=== PATIENT | male | born 1990 | race Caucasian/White ===

== ENCOUNTER 2016-11-27 21:19 | Emergency (ER) | payer OTHER ==
[~2016-11-27] VITALS: Ht 177.8 cm; Wt 138.4 kg
[2016-11-27 21:27] VITALS: TEMP 37.8; Ht 177.8 cm; Wt 138.4 kg
[2016-11-27] MEDS ORDERED: ESCI1TAB10 PO (22:30)
[2016-11-27] MEDS ORDERED: SODIUM CHLORIDE 0.9% 500ML 500 ML IV STA ×2 (22:44→23:30)
[2016-11-27] MEDS ORDERED: KETOROLAC TROMETHAMINE 30 MG/ML VIAL IV STA (22:44)
[2016-11-27] MEDS ORDERED: ACETAMINOPHEN 500 MG TAB PO STA (22:44)
[2016-11-27] MEDS ORDERED: ALBUTEROL HFA 8 GM INHALER INH ONE (22:45)
--- NOTE | 2016-11-27 22:46 | DIAGNOSTIC IMAGING REPORT ---
CHEST ONE VIEW PORTABLE CLINICAL HISTORY: Atypical chest pain, cough, chills, nausea, body aches COMPARISON STUDY: No previous studies for comparison. FINDINGS: The cardiac and mediastinal contours are normal. There is no evidence of focal pulmonary consolidation. There is no evidence of failure. No pleural effusions are visualized.[ IMPRESSION: No active disease in the chest. Electronically signed by: Dakota Lewis M.D. 11/27/2016 10:45 PM Dictated Date/Time: 11/27/2016 10:44 PM
[2016-11-27] MEDS ORDERED: ESCITALOPRAM OXALATE 20 MG TAB PO STA (22:48)
[2016-11-27 22:49] LABS: HEMATOCRIT 42.5 % (42-52); MEAN CELL VOLUME 79.7 fL (80-100); MEAN CORPUSCULAR HEMOGLOBIN 28.7 pg (25-34); MEAN PLATELET VOLUME 9.6 fL (7.4-10.4); PLATELET COUNT 266 K/uL (130-400); RED BLOOD COUNT 5.33 M/uL (4.7-6.1); WHITE BLOOD COUNT 24.28 K/uL (4.8-10.8)
[2016-11-27 22:58] VITALS: PULSE 93
[2016-11-27 22:58] LABS: INR 1.1 (0.9-1.1); PARTIAL THROMBOPLASTIN RATIO 1.1; PROTHROMBIN TIME (PATIENT) 11.5 SECONDS (9.0-12.0)
--- NOTE | 2016-11-27 23:01 | EMERGENCY ROOM VISIT NOTE ---
History Report prepared by Esperanza: Dax Martin Under the Supervision of: Dr. Darwin Garza M.D. First contact with patient: 22:42 Chief Complaint: CHEST PAIN Stated Complaint: CHEST PAIN,COUGH,CHILLS,NAUSEA,ACHES Nursing Triage Summary: pt c/o SOB, chills. Reports went to gym yesterday, was sore today. While at work episode of chest heaviness, SOB, difficulty deep breathing, chills around 1530. Aleve 1930 and Dayquil. no relief History of Present Illness The patient is a 26 year old male who presents to the Emergency Room with complaints of persistent chest pain beginning yesterday. He notes he went to the gym yesterday for the first time in a while. He then went to work, and began to experience some chest pain which he describes as "heaviness". He has also had a mild fever, some shortness of breath, and a cough with deep breathing. The patient reports upon trying to fall asleep tonight he had chills and felt cold despite adding layers. He notes he is still feeling sore, and has had some numbness in his fingertips. He took Aleve earlier in the evening for his soreness. The patient denies having any sore throat or nasal congestion. He notes having depression for which he takes 20 mg of Lexapro. Source of History: patient Onset: yesterday Position: chest Quality: other (chest pain; "heaviness") Timing: other (persistent) Associated Symptoms: + cough, + fevers, + numbness (in fingertips), No sorethroat Note: The patient notes having diffuse soreness. The patient denies having any nasal congestion. Review of Systems See HPI for pertinent positives & negatives. A total of 10 systems reviewed and were otherwise negative. Past Medical & Surgical Medical Problems: (1) History of depression Family History No pertinent family history stated. Social History Smoking Status: Never Smoker Current/Historical Medications Scheduled Escitalopram Oxalate (Lexapro), 20 MG PO DAILY Allergies Coded Allergies: No Known Allergies (Unverified , 11/27/16) Physical Exam Vital Signs Date Time Temp Pulse Resp B/P Pulse Ox O2 Delivery O2 Flow Rate FiO2 11/28/16 00:36 18 125/76 96 11/27/16 22:58 93 20 131/73 96 Room Air 11/27/16 22:30 108 11/27/16 21:30 96 Room Air 11/27/16 21:27 37.8 106 24 136/85 95 Room Air Physical Exam GENERAL: Patient is in no acute distress. HEENT: No acute trauma, normocephalic atraumatic, mucous membranes moist, no nasal congestion, no scleral icterus. No throat erythema or exudate. NECK: No stridor, no adenopathy, no meningismus, trachea is midline. LUNGS: Clear to auscultation bilaterally, no wheeze, no rhonchi, breath sounds equal. HEART: Without murmurs gallops or rubs, regular rate and rhythm. CHEST: Tenderness to the anterior chest wall and sternum. ABDOMEN: Soft, nontender, bowel sounds positive, no hernias, no peritonitis. EXTREMITIES: No cyanosis or edema, full range of motion of all the joints without pain or difficulty, no signs for acute trauma. NEUROLOGIC: Oriented x 3, no acute motor or sensory deficits, no focal weakness. SKIN: No rash, no jaundice, no diaphoresis. Medical Decision & Procedures ER Provider Diagnostic Interpretation: Radiology results are stated below per my review and radiologist interpretation: CHEST ONE VIEW PORTABLE FINDINGS: The cardiac and mediastinal contours are normal. There is no evidence of focal pulmonary consolidation. There is no evidence of failure. No pleural effusions are visualized. IMPRESSION: No active disease in the chest. Electronically signed by: Dakota Lewis M.D. 11/27/2016 10:45 PM Dictated Date/Time: 11/27/2016 10:44 PM Laboratory Results 11/27/16 22:29 11/27/16 22:29 Test 11/27/16 22:29 11/27/16 22:36 11/27/16 22:59 Red Blood Count 5.33 M/uL (4.7-6.1) Mean Corpuscular Volume 79.7 fL (80-100) Mean Corpuscular Hemoglobin 28.7 pg (25-34) Mean Corpuscular Hemoglobin Concent 36.0 g/dl (32-36) RDW Standard Deviation 35.3 fL (36.4-46.3) RDW Coefficient of Variation 12.2 % (11.5-14.5) Mean Platelet Volume 9.6 fL (7.4-10.4) Prothrombin Time 11.5 SECONDS (9.0-12.0) Prothromb Time International Ratio 1.1 (0.9-1.1) Activated Partial Thromboplast Time 29.5 SECONDS (21.0-31.0) Partial Thromboplastin Ratio 1.1 Anion Gap 10.0 mmol/L (3-11) Est Creatinine Clear Calc Drug Dose 130.8 ml/min Estimated GFR () 96.1 Estimated GFR (Non- 83.0 BUN/Creatinine Ratio 9.8 (10-20) Calcium Level 9.1 mg/dl (8.5-10.1) Total Bilirubin 1.1 mg/dl (0.2-1) Aspartate Amino Transf (AST/SGOT) 50 U/L (15-37) Alanine Aminotransferase (ALT/SGPT) 61 U/L (12-78) Alkaline Phosphatase 80 U/L (45-117) Total Creatine Kinase 1245 U/L (39-308) Creatine Kinase MB 2.9 ng/ml (0.5-3.6) Creatine Kinase MB Ratio 0.2 (0-3.0) Total Protein 8.3 gm/dl (6.4-8.2) Albumin 4.1 gm/dl (3.4-5.0) Globulin 4.2 gm/dl (2.5-4.0) Albumin/Globulin Ratio 1.0 (0.9-2) Bedside Troponin I 0.040 ng/ml (0-0.045) Influenza Type A Antigen Neg for Influ A (NEG) Influenza Type B Antigen Neg for Influ B (NEG) Laboratory results reviewed by me. Medications Administered Medications (Trade) Dose Ordered Sig/Almita Route Start Time Stop Time Status Last Admin Dose Admin Acetaminophen 1000 mg 1,000 mg NOW STAT PO 11/27/16 22:44 11/27/16 22:48 DC 11/27/16 22:55 1,000 MG Sodium Chloride (Nss 500ml) 500 ml @ 999 mls/hr Q31M STAT IV 11/27/16 22:44 11/27/16 23:14 DC 11/27/16 22:54 999 MLS/HR Albuterol (Ventolin Hfa Inhaler) 3 puffs NOW ONCE INH 11/27/16 22:45 11/27/16 22:48 DC 11/27/16 22:55 3 PUFFS Ketorolac Tromethamine (Toradol Inj) 30 mg NOW STAT IV 11/27/16 22:44 11/27/16 22:48 DC 11/27/16 22:54 30 MG Escitalopram Oxalate 20 mg 20 mg NOW STAT PO 11/27/16 22:48 11/27/16 22:49 DC 11/27/16 23:29 20 MG Sodium Chloride (Nss 500ml) 500 ml @ 999 mls/hr Q31M STAT IV 11/27/16 23:30 11/28/16 00:00 DC 11/27/16 23:30 999 MLS/HR ECG Indication: chest pain Rate (beats per minute): 98 Rhythm: normal sinus Findings: no acute ischemic change, no ectopy, other (artifact noted) ED Course 2243: The patient was evaluated in room C7. A complete history and physical exam was performed. 2244: Ordered Toradol Inj 30 mg IV, NSS 500 ml @ 999 mls/hr IV, and Acetaminophen 1,000 mg PO. 2245: Ordered Albuterol 3 puffs INH. 2248: Ordered Lexapro Tab 20 mg PO. 2330: Ordered NSS 500 ml @ 999 mls/hr IV. 0020: Reevaluated the patient. Discussed results and discharge instructions: He verbalized understanding and agreement. The patient is ready for discharge. Medical Decision Differentials include influenza or flu-like illness, bronchitis or pneumonia, musculoskeletal pain, electrolyte imbalance, anemia, dehydration, aortic dissection, PE, or [place]. There is a significant leukocytosis at 24,000, this could be consistent with infection. There was no anemia. No significant electrolyte abnormality or kidney failure. There were a few very minor liver enzyme elevations. Influenza testing was negative. Chest x-ray does not show pneumonia or CHF. EKG shows a normal sinus rhythm, no acute ischemia. Cardiac enzyme testing times one is not consistent with acute cardiac injury. The patient received IV saline, IV Toradol, oral Motrin. He was given albuterol via MDI. He received his normal dose of oral Lexapro. The patient has a flulike illness. I think this is causing his presentation and laboratory findings. He is not hypoxic, he feels improved and would like to go home. He will be discharged on albuterol, Motrin and/or Tylenol for fever and aches, rest and hydration were encouraged. If things are worsening, if he feels more short of breath, he will return to the ER for further assessment. Of note, the patient's chest pain is reproducible. I think the pain is likely musculoskeletal. Impression Primary Impression: Flu-like symptoms Additional Impressions: Leukocytosis Precordial chest pain Scribe Attestation The scribe's documentation has been prepared under my direction and personally reviewed by me in its entirety. I confirm that the note above accurately reflects all work, treatment, procedures, and medical decision making performed by me. Departure Information Dispostion Home / Self-Care Patient Instructions My [facility] Additional Instructions fluids rest heat to the chest wall may help albuterol 3 puffs every 4 hours motrin/tylenol for pain and aches and fever follow with dago md for recheck return to the ER for worsening symptoms or if not improving Problem Qualifiers
[2016-11-27 23:05] LABS: BUN/CREATININE RATIO 9.8 (10-20); CALCIUM 9.1 mg/dl (8.5-10.1); CREATININE 1.2 mg/dl (0.60-1.40); POTASSIUM 3.7 mmol/L (3.5-5.1)
[2016-11-27 23:20] LABS: CKMB/CK RATIO 0.2 (0-3.0)
[2016-11-28 00:36] VITALS: BP 125/76; O2SAT 96
== END 2016-11-28 00:37 | disposition home or self-care (01) ==
LOC: C.EDB 21:20 → C.EDC 11-28 00:37
DX: R68.89 Other general symptoms and signs (principal); D72.829 Elevated white blood cell count, unspecified; R07.2 Precordial pain